=== PATIENT | female | born 1990 | race Caucasian/White ===

== ENCOUNTER 2017-10-11 06:33 | Day surgery (SDC) | payer MEDICAID ==
[~2017-10-11 06:33] MED LIST: Sodium Chloride 0.9% 1,000 ML IV SCH
[2017-10-11] MEDS ORDERED: Sodium Tetradecyl Sulfate 1% 20 MG/2 ML SDV ONE (06:51)
[2017-10-11] MEDS ORDERED: Lidocaine 1% with EPINEPHrine 1:100,000 50 ML MDV ONE (06:52)
[2017-10-11] MEDS ORDERED: Sodium Chloride 0.9% 10 ML ONE (06:54)
[2017-10-11] MEDS ORDERED: fentaNYL 100 MCG/2 ML SDV ONE (07:20)
[2017-10-11] MEDS ORDERED: Midazolam 1 MG/ML 2 ML SDV ONE (07:20)
[2017-10-11] MEDS ORDERED: Propofol 200 MG/20 ML SDV ONE ×2 (07:20→08:14)
[2017-10-11] MEDS ORDERED: Lidocaine 1% w/EPINEPHrine 50 ML, Sodium Bicarbonate 5 MEQ in Sodium Chloride 0.9% 950 ML INJECT ONE (07:45)
[2017-10-11] MEDS ORDERED: Acetaminophen/HYDROcodone 325-5 MG Tab PO PRN (09:17)
--- NOTE | 2017-10-11 10:38 | US ---
Ultrasound provided for RFA guidance.
--- NOTE | 2017-10-11 11:31 | OR ---
DATE OF PROCEDURE: 10/11/2017 PROCEDURES: 1. Radiofrequency ablation of right greater saphenous vein. 2. Sclerotherapy, right, multiple. 3. Compression wrap, right leg, ([id number]). COMPLICATIONS: None. SQL REPORT WRITER: None. ANESTHESIA: MAC/local. PREOPERATIVE DIAGNOSIS: Venous/varicose vein insufficiency with inflammation and pain. POSTOPERATIVE DIAGNOSIS: Venous/varicose vein insufficiency with inflammation and pain. RISKS: Risks, benefits, alternatives, and limitations including, but not limited to infection, bleeding, and DVT formation were explained to the patient, and they wished to proceed. PROCEDURE IN DETAIL: The patient was placed in supine position. The right GSV was accessed at the level of the ankle using a 21-gauge needle, exchanged for a 35,000th wire, and then exchanged for a 7-Slovak sheath. RFA probe was advanced to 3 cm from the saphenofemoral junction. Tumescent fluid was injected in a 1-cm jacket around this and verified a second and third time. Direct even pressure was held as the sheath was deployed x2 proximally and distally and x1 in all other segments. The sheath and device were removed. Direct pressure was held for 10 minutes. Dermabond was applied. Sclerotherapy was then performed of the right leg. There were 5 on the right from 1 to 6 cm in size. These were injected using 0.33% sodium tetradecyl and always drawn back to ensure intravascular injection only. The left leg was then wrapped in a compression wrap in a [id number] formation using two- layer two-stage 20 mmHg pressure compression wraps. The patient tolerated the procedure well. Hilario Nicholas MD /[id number]
== END 2017-10-11 10:00 | disposition home or self-care (01) ==
LOC: JP.SDS 06:33
PROVIDERS: ATTEND Surgery
DX: I83.811 Varicose veins of right lower extremity with pain (principal); I87.2 Venous insufficiency (chronic) (peripheral); Z88.1 Allergy status to other antibiotic agents; Z87.440 Personal history of urinary (tract) infections
CPT/HCPCS: 36470; 36475; 81025; A9270; J1642; J2250; J2704; J3010; J7040; J7050; J3490

== ENCOUNTER 2019-01-29 12:36 | Emergency (ER) | payer MEDICAID ==
--- NOTE | 2019-01-29 13:54 | EDM.PDOC ---
ED HPI GENERAL MEDICAL PROBLEM - General Chief Complaint: Lower Extremity Injury/Pain Stated Complaint: DOG BITE ON RT LEG Time Seen by Provider: 01/29/19 13:35 Source of Information: Reports: Patient, Old Records History Limitations: Reports: No Limitations - History of Present Illness INITIAL COMMENTS - FREE TEXT/NARRATIVE: 28 yo female here with a dog bite wound to the L calf. Her last tetanus was in ' 12. She is not sure if the neighbors dog that bit her is UTD on vaccines, but this was reported to police. Onset: Today, Sudden Onset Date: 01/29/19 Onset Time: 12:55 Duration: Minutes:, Constant Location: Reports: Lower Extremity, Right Quality: Reports: Dull Severity: Mild Improves with: Reports: None Worsens with: Reports: None Context: Reports: Trauma Associated Symptoms: Reports: No Other Symptoms Treatments .NET DEVELOPER: Reports: Other (see below) (none) Right Lower Leg Pain Score (Numeric/FACES): 6 - Related Data Allergies Allergy/AdvReac Type Severity Reaction Status Date / Time cefaclor [From Ceclor] Allergy Other Verified 01/29/19 12:58 Home Meds: Home Meds ALPRAZolam [Xanax] 0.25 mg PO DAILY PRN 10/09/17 [History] Albuterol Sulfate [Proair Hfa] 8.5 gm IH ASDIRECTED 10/09/17 [History] Aluminum Chloride [Drysol] 35 ml TP ASDIRECTED 10/09/17 [History] Benzoyl Peroxide [Panoxyl] 10 gm TP ASDIRECTED 10/09/17 [History] Norgestimate-Ethinyl Estradiol [Gulf-Linyah 28 Tablet] 1 each PO ASDIRECTED 01/19 [History] Sertraline [Zoloft] 50 mg PO DAILY 10/09/17 [History] Triamcinolone Acetonide [Kenalog 0.1% Crm] 1 applic TOP ASDIRECTED 10/09/17 [ History] Past Medical History HEENT History: Reports: None Cardiovascular History: Reports: High Cholesterol Genitourinary History: Reports: Other (See Below) Other Genitourinary History: frequent yeast infections which resolved after part of outside of vagina removed Dermatologic History: Reports: Eczema, Other (See Below) Other Dermatologic History: dermatis - Infectious Disease History Infectious Disease History: Reports: Chicken Pox, Mononucleosis - Past Surgical History Head Surgeries/Procedures: Reports: None HEENT Surgical History: Reports: Tonsillectomy Cardiovascular Surgical History: Reports: None Female Surgical History: Reports: Other (See Below) Other Female Surgeries/Procedures: breast marker; removed part of outside of vagina Dermatological Surgical History: Reports: Other (See Below) Social & Family History - Family History Family Medical History: Noncontributory - Tobacco Use Smoking Status *Q: Never Smoker Second Hand Smoke Exposure: No - Caffeine Use Caffeine Use: Reports: None - Recreational Drug Use Recreational Drug Use: No Review of Systems - Review of Systems Review Of Systems: See Below Constitutional: Reports: No Symptoms Musculoskeletal: Reports: No Symptoms Skin: Reports: Wound (R calf) Neurological: Reports: No Symptoms Psychiatric: Reports: No Symptoms ED EXAM, GENERAL - Physical Exam Exam: See Below Exam Limited By: No Limitations General Appearance: Alert, WD/WN, No Apparent Distress Extremities: Other (laceration/bite of R calf area). No: Increased Warmth Neurological: Alert, Oriented, CN II-XII Intact, Normal Cognition, No Motor/ Sensory Deficits Psychiatric: Normal Affect, Normal Mood Skin Exam: Warm, Dry, Normal Color, No Rash, Wound/Incision (2.5 cm linear laceration of the R calf). No: Erythema ED TRAUMA EXTREMITY PROCEDURES - Laceration/Wound Repair Right Medial Leg Appearance: Subcutaneous, Muscle, Linear, Mildly Contaminated Distal NVT: Neuro & Vascular Intact, No Tendon Injury Anesthetic Type: Local Local Anesthesia - Lidocaine (Xylocaine): 1% Plain Local Anesthetic Volume: 5cc Skin Prep: Saline Saline Irrigation (cc's): 45 Exploration/Debridement/Repair: Wound Explored Closed With: Sutures Suture Size: 5-0 # of Sutures: 4 Suture Type: Nylon, Interrupted, Simple, Mattress Drain Placement: No Sterile Dressing Applied: Nurse Tetanus Status Addressed: Yes Complications: No Course - Vital Signs Last Recorded V/S: Last Vital Signs Temp 35.8 C 01/29/19 12:59 Pulse 95 01/29/19 12:59 Resp 19 01/29/19 12:59 BP 122/59 L 01/29/19 12:59 Pulse Ox 98 01/29/19 12:59 - Orders/Labs/Meds Orders: Active Orders 24 hr Category Date Time Status Vaccines to be Administered [RC] PER UNIT ROUTINE Care 01/29/19 13:38 Ordered Lidocaine 1% [Xylocaine-MPF 1%] Med 01/29/19 13:41 Once 5 ml INJECT ONETIME ONE Meds: Medications Discontinued Medications Generic Name Dose Route Start Last Admin Trade Name Ru PRN Reason Stop Dose Admin Amoxicillin/Clavulanate Potassium 1 tab 01/29/19 13:39 Augmentin 875 Mg/125 Mg PO 01/29/19 13:40 ONETIME ONE Bacitracin 1 dose 01/29/19 13:40 Bacitracin Oint 1 Gm TOP 01/29/19 13:41 ONETIME ONE Diphtheria/Tetanus/Acell Pertussis 0.5 ml 01/29/19 13:38 Adacel IM 01/29/19 13:39 .ONCE ONE Departure - Departure Time of Disposition: 14:10 Disposition: Home, Self-Care 01 Condition: Good Clinical Impression: Dog bite of left calf Qualifiers: Encounter type: initial encounter Qualified Code(s): S81.852A - Open bite, left lower leg, initial encounter; W54.0XXA - Bitten by dog, initial encounter - Discharge Information *PRESCRIPTION DRUG MONITORING PROGRAM REVIEWED*: No *COPY OF PRESCRIPTION DRUG MONITORING REPORT IN PATIENT FRANCISCO J: No Instructions: Animal Bite, Adult, [id number] Referrals: PCP,None [Primary Care Provider] - Additional Instructions: Clean wound twice daily with soap and water. Dry. Apply antibiotic ointment and a new dressing. Take acetaminophen as needed for pain relief. Keep wound area clean for 3 days. Take Augmentin every 12 hrs with food until gone for infection prophylaxis. Recheck of wound Sunday in the clinic. Stitches out a week from Sunday in the clinic. If the dog is not fully vaccinated for rabies then it will need to be quarantined per directions of its/your vet. If the dog disappears and cannot be found you may have to undergo the rabies series of vaccinations. - My Orders Last 24 Hours: My Active Orders 01/29/19 13:38 Vaccines to be Administered [RC] PER UNIT ROUTINE 01/29/19 13:41 Lidocaine 1% [Xylocaine-MPF 1%] 5 ml INJECT ONETIME ONE - Assessment/Plan Last 24 Hours: My Active Orders 01/29/19 13:38 Vaccines to be Administered [RC] PER UNIT ROUTINE 01/29/19 13:41 Lidocaine 1% [Xylocaine-MPF 1%] 5 ml INJECT ONETIME ONE
[2019-01-29] MEDS: Amoxicillin/Clavulanate K 875-125 MG Tab PO ONE (14:13)
[2019-01-29] MEDS: Diphtheria,Pertussis(Acell),Tetanus Vaccine 0.5 ML SDV IM ONE (14:14)
[2019-01-29] MEDS: Bacitracin Oint 1 GM U/D Packet TOP ONE (14:14)
== END 2019-01-29 14:23 | disposition home or self-care (01) ==
LOC: JP.ED 12:36
DX: S81.851A Open bite, right lower leg, initial encounter (principal); Z23 Encounter for immunization; Z88.1 Allergy status to other antibiotic agents; Z79.899 Other long term (current) drug therapy; E78.00 Pure hypercholesterolemia, unspecified; W54.0XXA Bitten by dog, initial encounter
CPT/HCPCS: 12001; 90471; 90715; 99283; A9270; J2001

== ENCOUNTER 2024-04-13 20:20 | Emergency (ER) | payer BC, MEDICAID ==
[2024-04-13 22:02] LABS: BASOPHILS ABSOLUTE AUTO 0.03 K/uL (0.00-0.10); BASOPHILS PERCENT AUTO 0.5 % (0.1-1.3); EOSINOPHILS ABSOLUTE AUTO 0.12 K/uL (0.00-0.40); HEMATOCRIT 32.8 % (34.3-46.0); HEMOGLOBIN 11.7 g/dL (11.2-15.5); IMMATURE GRAN PERCENT AUTO 0.3 % (0.0-0.7); LYMPHOCYTES ABSOLUTE AUTO 2.03 K/uL (0.8-3.3); LYMPHOCYTES PERCENT AUTO 33.8 % (11.4-47.7); MEAN CORPUSCULAR HEMOGLOBIN 30.8 pg (31.6-35.5); MEAN CORPUSCULAR HGB CONC 35.7 g/dL (31.6-35.5); MEAN CORPUSCULAR VOLUME 86.3 fL (81.4-99.0); MONOCYTES ABSOLUTE AUTO 0.52 K/uL (0.20-0.90); MONOCYTES PERCENT AUTO 8.7 % (3.3-12.6); NEUTROPHILS ABSOLUTE AUTO 3.28 K/uL (1.0-7.6); NEUTROPHILS PERCENT AUTO 54.7 % (40.0-78.1); PLATELET COUNT,PLT 241 K/uL (130-375)
[2024-04-13 22:07] LABS: APPEARANCE,URINE CLEAR (CLEAR); BILIRUBIN,URINE NEGATIVE (NEGATIVE); COLOR,URINE YELLOW (YELLOW); GLUCOSE,URINE NEGATIVE (NEGATIVE); KETONES,URINE NEGATIVE (NEGATIVE); LEUKOCYTE ESTERASE,URINE NEGATIVE (NEGATIVE); NITRITE,URINE NEGATIVE (NEGATIVE); OCCULT BLOOD,URINE NEGATIVE (NEGATIVE); PROTEIN,URINE NEGATIVE (NEGATIVE); UROBILINOGEN,URINE 0.2 EU/dL (0.2-1.0)
[2024-04-13 22:08] LABS: IMMATURE GRAN ABSOLUTE AUTO 0.02 K/uL (0.00-0.23)
[2024-04-13 22:16] LABS: EPITHELIAL CELLS,URINE RARE; RBC,URINE 0-5 (0-5); WBC,URINE 0-5 (0-5)
[2024-04-13 22:17] LABS: AMORPHOUS SEDIMENT,URINE NOT SEEN; BACTERIA,URINE NOT SEEN; MUCUS,URINE NOT SEEN
[2024-04-13 22:18] LABS: CALCIUM 9.1 mg/dL (8.5-10.1); CREATININE 0.7 mg/dL (0.6-1.0); EST CRCL DRUG DOSING (CG) 105.01 mL/min; MAGNESIUM 1.6 mg/dL (1.8-2.4); POTASSIUM,K 3.4 mmol/L (3.6-5.2)
[2024-04-13 22:19] LABS: ANION GAP 10.4 mmol/L (5.0-14.0)
[2024-04-13] MEDS: Magnesium Oxide 400 MG Tab PO ONE (22:43)
[2024-04-13] MEDS: Ondansetron 4 MG Tab.DIS PO ONE (22:44)
[2024-04-13] MEDS: Sodium Chloride 0.9% 1,000 ML IV SCH (22:45)
[2024-04-14 01:26] LABS: CALCIUM 8.4 mg/dL (8.5-10.1); CREATININE 0.7 mg/dL (0.6-1.0); EST CRCL DRUG DOSING (CG) 105.01 mL/min; MAGNESIUM 1.6 mg/dL (1.8-2.4); POTASSIUM,K 3.6 mmol/L (3.6-5.2)
[2024-04-14 01:27] LABS: ANION GAP 11.6 mmol/L (5.0-14.0)
== END 2024-04-14 02:06 | disposition home or self-care (01) ==
LOC: JP.ED 20:20
DX: I44.0 Atrioventricular block, first degree (principal); E83.42 Hypomagnesemia; E87.1 Hypo-osmolality and hyponatremia; J45.909 Unspecified asthma, uncomplicated; Z90.89 Acquired absence of other organs; Z88.8 Allergy status to other drugs, medicaments and biological substances; Z79.51 Long term (current) use of inhaled steroids; Z79.899 Other long term (current) drug therapy
CPT/HCPCS: 36415; 80048; 81001; 81025; 83735; 84443; 84484; 85025; 93005; 96360; 99284; A9270; J7030; Q0162

== ENCOUNTER 2024-09-10 16:49 | Emergency (ER) | payer BC ==
[2024-09-10 17:55] LABS: BASOPHILS ABSOLUTE AUTO 0.04 K/uL (0.00-0.10); BASOPHILS PERCENT AUTO 0.7 % (0.1-1.3); EOSINOPHILS ABSOLUTE AUTO 0.14 K/uL (0.00-0.40); EOSINOPHILS PERCENT AUTO 2.3 % (0.0-5.4); HEMATOCRIT 36.1 % (34.3-46.0); HEMOGLOBIN 12.1 g/dL (11.2-15.5); IMMATURE GRAN PERCENT AUTO 0.2 % (0.0-0.7); LYMPHOCYTES ABSOLUTE AUTO 2.08 K/uL (0.8-3.3); LYMPHOCYTES PERCENT AUTO 34.3 % (11.4-47.7); MEAN CORPUSCULAR HEMOGLOBIN 30.4 pg (31.6-35.5); MEAN CORPUSCULAR HGB CONC 33.5 g/dL (31.6-35.5); MEAN CORPUSCULAR VOLUME 90.7 fL (81.4-99.0); MONOCYTES ABSOLUTE AUTO 0.39 K/uL (0.20-0.90); MONOCYTES PERCENT AUTO 6.4 % (3.3-12.6); NEUTROPHILS PERCENT AUTO 56.1 % (40.0-78.1); PLATELET COUNT,PLT 244 K/uL (130-375); RED BLOOD CELL COUNT 3.98 M/uL (3.77-5.24); WHITE BLOOD CELL COUNT,WBC 6.1 K/uL (3.2-11.0)
[2024-09-10 17:56] LABS: BASE EXCESS VENOUS 1.6 mm/L; BICARBONATE,VENOUS 26.4 mmol/L; CARBOXYHEMOGLOBIN 1.9 % (0.0-1.6); METHEMOGLOBIN 0.7 %; O2 SATURATION VENOUS 51.2; OXYHEMOGLOBIN 49.9 %; PH,VENOUS 7.387 (7.350-7.450); TOTAL HEMOGLOBIN 12.7 g/dL (12.0-16.0)
[2024-09-10 17:56] LABS: IMMATURE GRAN ABSOLUTE AUTO 0.01 K/uL (0.00-0.23)
[2024-09-10] MEDS: Aspirin 81 MG Tab.Chew PO ONE (18:04)
[2024-09-10 18:12] LABS: INR 1.1
[2024-09-10 18:25] LABS: A/G RATIO 1.2 (1.2-2.2); ALANINE AMINOTRANSFERASE,ALT 18 U/L (12-78); ALBUMIN 3.9 g/dL (3.4-5.0); ALKALINE PHOSPHATASE 83 U/L (46-116); ANION GAP 7.1 mmol/L (5.0-14.0); ASPARTATE AMNIOTRANSFERASE,AST 17 U/L (15-37); BILIRUBIN TOTAL 1.1 mg/dL (0.2-1.0); BLOOD UREA NITROGEN,BUN 10 mg/dL (7-18); CALCIUM 9.2 mg/dL (8.5-10.1); CARBON DIOXIDE,CO2 29 mmol/L (21-32); CHLORIDE,CL 104 mmol/L (100-108); CREATININE 0.8 mg/dL (0.6-1.0); ESTIMATED GFR 98 mL/min (>60); GLUCOSE RANDOM 126 mg/dL (74-106); POTASSIUM,K 4.1 mmol/L (3.6-5.2); PROTEIN TOTAL,TP 7.2 g/dL (6.4-8.2); SODIUM,NA 140 mmol/L (140-148); TSH ULTRASENSITIVE 3.198 uIU/mL (0.358-3.740)
[2024-09-10 18:39] LABS: APPEARANCE,URINE CLEAR (CLEAR); BILIRUBIN,URINE NEGATIVE (NEGATIVE); COLOR,URINE YELLOW (YELLOW); GLUCOSE,URINE NEGATIVE (NEGATIVE); KETONES,URINE NEGATIVE (NEGATIVE); LEUKOCYTE ESTERASE,URINE NEGATIVE (NEGATIVE); NITRITE,URINE NEGATIVE (NEGATIVE); OCCULT BLOOD,URINE NEGATIVE (NEGATIVE); PROTEIN,URINE NEGATIVE (NEGATIVE); UROBILINOGEN,URINE 0.2 EU/dL (0.2-1.0)
[2024-09-10 18:43] LABS: AMPHETAMINES SCREEN, URINE NEGATIVE (NEGATIVE); BARBITURATE SCREEN,URINE NEGATIVE (NEGATIVE); BENZODIAZEPINES SCREEN,URINE NEGATIVE (NEGATIVE); METHADONE SCREEN, URINE NEGATIVE (NEGATIVE); METHAMPHETAMINES SCREEN, URINE NEGATIVE (NEGATIVE); OXYCODONE SCREEN,URINE NEGATIVE (NEGATIVE); PROPOXYPHENE SCREEN,URINE NEGATIVE (NEGATIVE); THC SCREEN,URINE 50 NG/ML NEGATIVE (NEGATIVE)
[2024-09-10 18:44] LABS: AMORPHOUS SEDIMENT,URINE NOT SEEN; BACTERIA,URINE NOT SEEN; EPITHELIAL CELLS,URINE RARE; MUCUS,URINE NOT SEEN; RBC,URINE NOT SEEN (0-5); WBC,URINE NOT SEEN (0-5)
== END 2024-09-10 19:00 | disposition home or self-care (01) ==
LOC: JP.ED 16:49
DX: R07.2 Precordial pain (principal); J45.909 Unspecified asthma, uncomplicated; Z88.8 Allergy status to other drugs, medicaments and biological substances; Z79.899 Other long term (current) drug therapy
CPT/HCPCS: 36415; 71045; 71045-26; 80053; 80305-QW; 81001; 81025; 82803; 83605; 83735; 84443; 84484; 85025; 85379; 85610; 93005; 93010; 99284; 99285; A9270-GY